=== PATIENT | male | born 2000 | race African-American/Black ===

== ENCOUNTER 2019-06-01 14:15 | Emergency (ER) | payer OTHER ==
[~2019-06-01] VITALS: Ht 177.8 cm; Wt 67.1 kg
[2019-06-01 14:15] VITALS: BP_SYST 147
--- NOTE | 2019-06-01 14:15 | NUR ---
BROUGHT BACK TO BED #3 AND TRIAGED. REPORT GIVEN TO GURINDER
--- NOTE | 2019-06-01 14:20 | NUR ---
Pt brought by self,A&Ox4, pt presents to ER with bump on R upper abdomen for 2 years, denies pain , denies N/V, afebrile, skin pink and warm, cap refill <3.
--- NOTE | 2019-06-01 14:47 | NUR ---
Dr Santana at bedside examining patient.
[2019-06-01 15:29] VITALS: BP_SYST 147
--- NOTE | 2019-06-01 15:29 | NUR ---
Patient given written and verbal discharge instructions and verbalizes understanding. ER MD discussed with patient the results and treatment provided. Patient in stable condition. ID arm band removed. Rx given. Patient educated on pain management and to follow up with PMD. Pain Scale 0/10. Opportunity for questions provided and answered. Medication side effect fact sheet provided.
== END 2019-06-01 15:29 | disposition home or self-care (01) ==
LOC: SED 14:15
DX: D17.1 Benign lipomatous neoplasm of skin and subcutaneous tissue of trunk (principal); R03.0 Elevated blood-pressure reading, without diagnosis of hypertension
CPT/HCPCS: 99284